=== PATIENT | female | born 1995 | race Caucasian/White ===

== ENCOUNTER 2021-08-29 14:03 | Outpatient (REF) | payer MEDICAID, SELFPAY ==
[2021-08-29 14:33] LABS: COVID-19 Test Negative (Negative)
== END 2021-08-29 14:04 | disposition home or self-care (01) ==
LOC: HO.LAB 14:03
PROVIDERS: Visit Provider Internal Medicine
DX: Z20.822 Contact with and (suspected) exposure to COVID-19 (principal)
CPT/HCPCS: 36415; 87635; C9803

== ENCOUNTER 2023-10-08 15:31 | Emergency (ER) | payer MEDICAID, SELFPAY ==
--- NOTE | ~2023-10-08 | US_ITS ---
EXAMINATION: US OBSTETRICAL ULTRASOUND CLINICAL INFORMATION: Pain, nausea and vomiting; positive test. COMPARISON: Obstetrical ultrasound examinations including 04/27/2011. LMP: Uncertain.. Gestational age by maternal dates is uncertain. Estimated date of delivery by maternal dates is uncertain. TECHNIQUE: Ultrasound of the maternal pelvis is performed using transabdominal transducer. M-mode Doppler is also performed. FINDINGS: There is a single intrauterine gestational sac with visible yolk sac, embryo/fetus, and cardiac activity. There are scattered myometrial calcifications. There is no significant subchorionic hemorrhage or hematoma. HR: 150 beats per minute. CRL (crown rump length): 0.93 cm (7 weeks and 0 days +/- 4 days). APRIL (estimated date of delivery): 05/26/2024 +/- 4 days. MATERNAL ADNEXA: The right maternal ovary measures 2.8 x 2.6 x 1.9 cm. The right ovary contains a 1.8 cm corpus luteum cyst. The left maternal ovary measures 4.5 x 4.0 x 3.9 cm. The left ovary contains a 3.5 cm benign, simple cyst. There is no significant maternal adnexal mass. No maternal pelvic ascites. US/US OB pelvic and transvaginal IMPRESSION: 1. Single intrauterine gestation with ultrasound gestational age of 7 weeks and 0 days +/- 4 days. 2. Estimated date of delivery is 05/26/2024 +/- 4 days. 3. No maternal adnexal mass or pelvic ascites.
[2023-10-08 15:56] VITALS: BP 140/76; PULSE 97; RESP 20; TEMP 36; O2SAT 98; BMI 24.7
--- NOTE | 2023-10-08 15:59 | ED.GENADULT ---
HPI - General Adult General Chief complaint: Upper Respiratory Symptoms Stated complaint: diarrhea wheezing flu like symptoms Time Seen by Provider: 10/08/23 19:06 Source: patient Mode of arrival: ambulatory Limitations: no limitations History of Present Illness HPI narrative: Patient is a 27-year-old female who presents emergency department for evaluation of upper respiratory symptoms. Reports her daughter is ill at home with similar symptoms and tested positive for RSV 2 days ago. For the past 4 days she has been experiencing productive cough, body aches, chills, nasal congestion, nausea, vomiting, diarrhea at least 4 times daily described as watery in nature, increased urinary frequency. Last menstrual period in July 2023, reports history of irregular menses. Related Data Previous Rx's Medication Instructions Recorded potassium chloride 20 mEq 20 meq PO BID #6 tabs 10/08/23 tablet,extended release vit 168-iron 27 mg-folic 1 cap PO DAILY #30 caps 10/08/23 acid 800 mcg-omega3 235 mg capsule (One-A-Day -1) Allergies Allergy/AdvReac Type Severity Reaction Status Date / Time No Known Allergies Allergy Verified 10/08/23 15:56 Review of Systems Review of Systems: Yes all other systems are reviewed and are negative REPLACED BY [facility] Past Medical History Attestation statement: The following information was validated with the patient. Source: old records reviewed Social History Social History Advance Directives: No Advance Directives Information Provided: No Physical Exam ED Vital Signs: Vital Signs - 24 hr 10/08/23 15:56 10/08/23 19:23 Temperature 96.8 F 99.3 F Pulse Rate 97 90 Respiratory Rate 20 20 Blood Pressure 140/76 H 143/70 H Pulse Oximetry 98 98 Oxygen Delivery Method Room Air Room Air BMI result Body Mass Index 24.7 Appearance: Alert.?Oriented to person, place and time. No acute distress.?Normal affect. Eyes: Pupils equal, round and reactive to light.? ENT: Pharynx normal.?? Neck: Normal inspection.? Neck supple.?? CVS: Heart sounds normal. Normal heart rate and rhythm.? Pulses normal.?? Respiratory: No respiratory distress.? Lung sounds clear to auscultation bilaterally?? Abdomen: Soft and non-tender. Normoactive bowel sounds. Skin: Skin warm and dry.? Normal skin color.? Extremities: No lower extremity edema.? Neuro: Moves all extremities spontaneously. Sensation intact bilaterally. Ambulates with normal steady gait. Course Course Course Narrative: This is an RME: Additional HPI, ROS, PE not included below will be deferred to primary provider. 27-year-old female presents for evaluation of 4 days of chest congestion, cough, multiple episodes of vomiting, chills, nausea, diarrhea. Her daughter tested positive for RSV 2 days ago. Plan: Viral swabs, CXR, labs Reevaluation(s) Reevaluation #1: Ultrasound revealing a single intrauterine with gestational age of 7 weeks, estimated due date 05/26/2023. I presented to bedside to reviewed these findings with patient, she has eloped from the department. I was planning for Discharged home I have sent prescriptions for vitamin, potassium chloride oral supplementation to take for the next 3 days. Urinalysis was not obtained, time-out exclude infection. I attempted to contact patient at home phone number or, left voicemail for call back as I was unable to make contact. Time: 22:44 Medications Administered Discontinued Medications Generic Name Dose Route Start Last Admin Trade Name Robert PRN Reason Stop Dose Admin Ondansetron HCl 4 mg 10/08/23 15:58 10/08/23 16:02 Ondansetron Odt 4 Mg Tab.Rapdis TRANSLINGU 10/08/23 15:59 4 mg ONCE ONE Administration Potassium Chloride 40 meq 10/08/23 19:39 10/08/23 20:27 Potassium Chloride Packet 20 Meq Packet PO 10/08/23 19:40 40 meq ONCE ONE Administration Medical Decision Making Medical Decision Making MDM Narrative: Patient is a 27-year-old female presenting to emergency department for evaluation of upper respiratory symptoms as per HPI. At the time my examination she is overall well-appearing, nontoxic, afebrile. She is without tachycardia, tachypnea or hypoxia. She speaking clear full sentences. Lung sounds are clear bilaterally. Viral testing positive for RSV, discussed with patient conservative treatment of viral illness and no indication for antibiotics at this time. Clinically have lower suspicion for pneumonia, XR imaging was deferred. She has also been experiencing nausea vomiting and diarrhea, her abdominal examination is benign. I have a lower suspicion for colitis, diverticulitis, obstruction, suspect gastrointestinal symptoms secondary to viral syndrome. Her potassium is low at 3.0 which I suspect is secondary to the vomiting and diarrhea, will replace orally. Serum hCG was obtained revealing , patient is uncertain of the date of her last menstrual period, hCG 84,528, making her a (with 2 abortions earlier this year in January and March). She denies any vaginal bleeding, abnormal vaginal discharge. Plan to obtain pelvic ultrasound for further evaluation, in addition to urinalysis. Differential Diagnosis Differential Diagnoses: The differential diagnosis associated with the presentation includes (As noted above) Admission/Observation Consideration of admission/observation: Escalation of care including admission/observation considered (e see narrative above and course narrative for further detail) Lab Data MDM Lab Attestation statement: I reviewed the patient's lab results. (The narrative above) 10/08/23 16:17 10/08/23 16:17 Labs: Lab Results 10/08/23 Range/Units 16:17 WBC 9.9 (4.8-10.8) X10*3/uL RBC 5.00 (4.20-5.50) X10*6/uL Hgb 14.6 (12.0-16.0) g/dl Hct 44.5 (37.0-47.0) % MCV 89.0 (80.0-98.0) fL MCH 29.2 (27.0-33.0) pg MCHC 32.8 (31.0-35.0) g/dl RDW 13.0 (11.0-16.0) % Plt Count 223 (160-400) X10*3/uL MPV 9.4 (9.4-12.3) fL Immature Gran % (Auto) 0.2 (0.0-0.4) % Neut % (Auto) 69.2 (45-73) % Lymph % (Auto) 17.3 L (20-40) % [place] % (Auto) 9.3 (2-11) % Eos % (Auto) 3.6 (0-4) % Baso % (Auto) 0.4 (0-2) % Lymph # (Auto) 1.7 (1.2-4.9) X10*3/uL [place] # (Auto) 0.9 (0.1-1.2) X10*3/uL Eos # (Auto) 0.4 (0.0-0.4) X10*3/uL Baso # (Auto) 0.0 (0.0-0.2) X10*3/uL Abs Immat Gran (auto) 0.02 (0.00-0.03) X10*3/uL Absolute Neuts (auto) 6.8 (2.0-8.3) x10*3/uL Absolute Nucleated RBC 0.000 (0.0-0.012) X10*3/uL Nucleated RBC % (auto) 0.0 (0.0-0.2) /100WBC Sodium 137 (135-145) mmol/L Potassium 3.0 L (3.3-5.1) mmol/L Chloride 105 (96-108) mmol/L Carbon Dioxide 24 (22-29) mmol/L Anion Gap 11 L (12-20) BUN 7 L (9-16) mg/dL Creatinine 0.65 (0.5-1.4) mg/dL Estim Creat Clear Calc 110.9 Estimated GFR > 60 Random Glucose 105 (60-115) mg/dL Calcium 9.4 (8.4-10.2) mg/dL Magnesium 2.3 (1.6-2.6) mg/dL Total Bilirubin 0.5 (0.0-1.0) mg/dL AST 20 (5-31) U/L ALT 13 (0-31) U/L Alkaline Phosphatase 64 (39-117) U/L Total Protein 8.0 (6.5-8.0) g/dL Albumin 4.6 (3.5-5.0) g/dL Beta HCG, Quant 73911 mIU/mL Influenza Type A (PCR) NEGATIVE (Negative) Influenza Type B (PCR) NEGATIVE (Negative) RSV RNA Qual (PCR) POSITIVE A (Negative) SARS-CoV-2 RNA (RT-PCR) NEGATIVE (Negative) Independent Interpretation I performed an independent interpretation of an: Ultrasound Radiology Impression Discussion of test interpretation with radiology: I have reviewed the radiologist's reading. Radiologist Impression: US/US OB pelvic and transvaginal IMPRESSION: 1. Single intrauterine gestation with ultrasound gestational age of 7 weeks and 0 days +/- 4 days. 2. Estimated date of delivery is 05/26/2024 +/- 4 days. 3. No maternal adnexal mass or pelvic ascites. Independent Historian Clinical information obtained from an independent historian. History obtained from or confirmed by: Spouse External Record Review External record reviewed: Outpatient record Discharge Plan Discharge Clinical Impression: Respiratory syncytial virus (RSV), Acute hypokalemia, in first trimester with history of Patient Disposition: Elopement Instructions: Potassium Content of Foods List (ED), Hypokalemia (ED) Additional Instructions: RSV is a common respiratory viruses that causes mild, cold-like symptoms. Typically symptoms resolve in 1-2 weeks. Be sure to get plenty of rest, stay well hydrated drinking plenty of fluids, eat small frequent meals. Alternating between Tylenol/ibuprofen can be used as needed for fever/pain. Saline nasal spray, humidifier may be helpful for nasal congestion. Most people are usually contagious for 3-8 days, however in some infants they may continue to spread the virus even after having symptoms for as long as 4 weeks. You may return to the emergency department with any new or worsening symptoms or concerns, be sure to monitor for shortness of breath, or difficulty breathing as discussed. Follow-up with your primary care provider as needed. Take the potassium supplement as prescribed. Contact your primary care provider to have a follow-up visit within 3 days and have repeat labs. Prescriptions: New potassium chloride 20 mEq tablet extended release 20 meq PO BID Qty: 6 0RF One-A-Day -1 27 mg iron- 800 mcg-235 mg capsule 1 cap PO DAILY Qty: 30 0RF Referrals: Juan Carlos Delgado MD [Physician] - Interventions: ED Discharge Assessment Last Done: 10/08/23 22:48 Discharge Date/Time: 10/08/23 22:49
[2023-10-08] MEDS: Ondansetron ODT 4 MG TAB.RAPDIS TRANSLINGU (16:02)
[2023-10-08 16:24] LABS: MANUAL DIFF FLAG NO
[2023-10-08 16:26] LABS: Basophils Percent Auto 0.4 % (0-2); Eosinophils Absolute Auto 0.4 X10*3/uL (0.0-0.4); Eosinophils Percent Auto 3.6 % (0-4); Hematocrit 44.5 % (37.0-47.0); Hemoglobin 14.6 g/dl (12.0-16.0); Imm Gran Abs Auto 0.02 X10*3/uL (0.00-0.03); Imm Gran Pct Auto 0.2 % (0.0-0.4); Lymphocytes Absolute Auto 1.7 X10*3/uL (1.2-4.9); Lymphocytes Percent Auto 17.3 % (20-40); Mean Corpuscular HGB Conc 32.8 g/dl (31.0-35.0); Mean Corpuscular Hemoglobin 29.2 pg (27.0-33.0); Mean Platelet Volume 9.4 fL (9.4-12.3); Monocytes Absolute Auto 0.9 X10*3/uL (0.1-1.2); Monocytes Percent Auto 9.3 % (2-11); Neutrophils Absolute Auto 6.8 x10*3/uL (2.0-8.3); Neutrophils Percent Auto 69.2 % (45-73); Platelet Count 223 X10*3/uL (160-400); White Blood Count 9.9 X10*3/uL (4.8-10.8)
[2023-10-08 16:50] LABS: Alanine Aminotransferase 13 U/L (0-31); Albumin Level 4.6 g/dL (3.5-5.0); Alkaline Phosphatase 64 U/L (39-117); Anion Gap 11 (12-20); Aspartate Amino Transferase 20 U/L (5-31); Bilirubin Total 0.5 mg/dL (0.0-1.0); Blood Urea Nitrogen 7 mg/dL (9-16); Calcium 9.4 mg/dL (8.4-10.2); Carbon Dioxide 24 mmol/L (22-29); Chloride 105 mmol/L (96-108); Creatinine Clr Calc Pharmacy 110.9; Estimated Glomerular Filt Rate > 60; Glucose Random 105 mg/dL (60-115); Magnesium 2.3 mg/dL (1.6-2.6); Sodium 137 mmol/L (135-145)
[2023-10-08 17:19] LABS: Influenza A PCR NEGATIVE (Negative); Influenza B PCR NEGATIVE (Negative); Resp Syncy Virus RNA Qual PCR POSITIVE (Negative); SARS COV2 PCR INHOUSE NEGATIVE (Negative)
[2023-10-08 19:23] VITALS: BP 143/70; PULSE 90; RESP 20; TEMP 37.4; O2SAT 98
--- NOTE | 2023-10-08 20:15 | PC.NURSE ---
this nurse went to get the patients potassium upon returning radiology had taken the patient for her ultrasound. will administer when she returns
[2023-10-08] MEDS: Potassium Chloride Packet 20 MEQ PACKET 40 MEQ PO (20:27)
--- NOTE | 2023-10-08 20:29 | PC.NURSE ---
patient a&ox3, vss, pt denies pain/discomfort at this time, pt drinking potassium as ordered, will continue to monitor
--- NOTE | 2023-10-08 22:48 | PC.NURSE ---
[place] informed this nurse pt has eloped
== END 2023-10-08 22:49 | disposition left against medical advice (07) ==
PROVIDERS: Physician Assistant; Emergency Provider Emergency Medicine
DX: O98.511 Other viral diseases complicating pregnancy, first trimester (principal); R05.9 Cough, unspecified; B97.4 Respiratory syncytial virus as the cause of diseases classified elsewhere; O26.891 Other specified pregnancy related conditions, first trimester; E87.6 Hypokalemia; Z3A.01 Less than 8 weeks gestation of pregnancy; Z20.822 Contact with and (suspected) exposure to COVID-19; Z20.828 Contact with and (suspected) exposure to other viral communicable diseases
CPT/HCPCS: 0241U; 76801; 76817; 80053; 83735; 84702; 85025; 99283; 99284